=== PATIENT | male | born 1975 | race Caucasian/White ===

== ENCOUNTER 2020-06-06 10:16 | Emergency (ER) | payer MEDICAID ==
[~2020-06-06] VITALS: Ht 177.8 cm; Wt 180.0 kg
[2020-06-06 10:19] VITALS: BP 132/82
[2020-06-06] MEDS ORDERED: TETANUS, DIPHTHERIA, PERTUSSIS VAC/PF 0.5ML (>7YR OLD) IM ONE (10:45)
[2020-06-06] MEDS ORDERED: IBUPROFEN 600MG TABLET PO ONE (10:45)
== END 2020-06-06 11:05 | disposition home or self-care (01) ==
LOC: ER 10:16
DX: S71.152A Open bite, left thigh, initial encounter (principal); W54.0XXA Bitten by dog, initial encounter; Y93.89 Activity, other specified; Y92.89 Other specified places as the place of occurrence of the external cause; Y99.8 Other external cause status
CPT/HCPCS: 90471; 90715; 99283

== ENCOUNTER 2021-06-05 18:51 | Emergency (ER) | payer BC, MEDICAID ==
[~2021-06-05] VITALS: Ht 165.1 cm; Wt 79.3 kg
[2021-06-05] MEDS ORDERED: FLUORESCEIN SODIUM 1MG/STRIP BOTHEYE ONE (19:45)
[2021-06-05] MEDS ORDERED: TETRACAINE 0.5% OPHTH DROPS 4ML BOTHEYE ONE (19:45)
[2021-06-05] MEDS ORDERED: CIPR2.5D13 LEFTEYE (20:04)
[2021-06-06 00:16] VITALS: BP 129/89
== END 2021-06-06 00:18 | disposition home or self-care (01) ==
LOC: ER 18:51
DX: H16.002 Unspecified corneal ulcer, left eye (principal)
CPT/HCPCS: 99284